=== PATIENT | male | born 1965 | race Caucasian/White ===

== ENCOUNTER 2017-01-10 13:33 | Emergency (ER) | payer OTHER ==
[~2017-01-10] VITALS: Ht 190.5 cm; Wt 120.0 kg
[~2017-01-10 13:33] MED LIST: IBUP-232 PO; PERC5TAB12 PO
[2017-01-10 13:34] VITALS: BP 156/82; PULSE 104; RESP 16; TEMP 98; O2SAT 96
--- NOTE | 2017-01-10 13:46 | PD ---
Physical Exam Date Seen by Provider: January 10, 2017 Time Seen by Provider: 13:45 Narrative 51 year old male presents to the emergency department for evaluation of dizziness, lightheadedness. He denies syncope. He states he has a brain tumor , but never saw a neurologist. Vital signs reviewed. Patient awaiting bed placement. Data Data Last Documented VS Vital Signs Date Time Temp Pulse Resp B/P Pulse Ox O2 Delivery O2 Flow Rate FiO2 01/10/17 13:34 98.0 104 16 156/82 96 MDM Supervised Visit with BARRETT: Veronica Mejia January 10, 2017 13:46
[2017-01-10] MEDS ORDERED: DOXA1TAB35 PO (14:08)
[2017-01-10] MEDS ORDERED: MECL-62 PO (14:08)
[2017-01-10] MEDS ORDERED: ATOR1TAB18 PO (14:08)
[2017-01-10] MEDS ORDERED: LISI10TA3 PO (14:08)
[2017-01-10] MEDS ORDERED: SODIUM CHLOR 0.9% 1000 ML INJ 1,000 ML IV ONE (14:25)
[2017-01-10] MEDS ORDERED: MECLIZINE HCL 25 MG TAB PO ONE (14:30)
[2017-01-10] MEDS ORDERED: SODIUM CHLORIDE 0.9% FLUSH 10 ML FLUSH IVF PRN (14:30)
--- NOTE | 2017-01-10 14:43 | PD ---
HPI Chief Complaint: Syncope/Near-Syncope Time Seen by Provider: 14:20 Travel History International Travel<30 days: No Contact w/Intl Traveler<30days: No Traveled to known affect area: No History of Present Illness HPI Patient comes in for evaluation of vertigo. Patient states he has a history of vertigo however got worse over the past several days. Patient's been taking his Antivert 12.5 mg as directed with some improvement of his symptoms. Patient states 5 days ago he lost sight in his right eye and hearing in his right ear after the casting room helper or pounding on his door causing him to be stress. Patient states he's had this happen to him from time to time since he was a child whenever he gets too stressed. However it has been a while. Patient states this lasted approximately 2 minutes since resolved but his vertigo is got somewhat worse. Patient denies any chest pain, shortness of breath, nausea , vomiting, numbness or tingling anywhere, weakness, headache, trauma, ataxia, paresthesias, or ever seen a neurologist for this. Patient states he contacted his primary care doctor today told to come to the emergency department further treatment and evaluation. PFSH Past Medical History Anxiety: Yes Depression: Yes Cardiovascular Problems: Yes High Cholesterol: Yes Diminished Hearing: Yes ([place]) GERD: Yes Hypertension: Yes Insomnia: Yes Psychiatric: Yes Immunizations Current: No Tetanus Vaccination: > 5 Years Influenza Vaccination: No Past Surgical History Eye Surgery: Yes Social History Alcohol Use: No Tobacco Use: No Substance Use: No Allergies-Medications (Allergen,Severity, Reaction): Coded Allergies: No Known Allergies (Unverified , 01/10/17) Reported Meds & Prescriptions Reported Meds & Active Scripts Active Ibuprofen 600 Mg Tab 600 Mg PO Q8HR PRN Reported Doxazosin (Doxazosin Mesylate) 2 Mg Tab 2 Mg PO DAILY Meclizine (Meclizine HCl) 25 Mg Tab 25 Mg PO Q6HR PRN Lisinopril 10 Mg Tab 10 Mg PO DAILY Atorvastatin (Atorvastatin Calcium) 80 Mg Tab 40 Mg PO HS Review of Systems Except as stated in HPI: all other systems reviewed are Neg Physical Exam Narrative GENERAL: Well-developed, overly nourished, in no acute distress, and non-ill appearing. SKIN: Focused skin assessment warm and dry. HEAD: Atraumatic. Normocephalic. EYES: PERRLA. EOMI. No scleral icterus. No injection or drainage. ENT: No nasal bleeding or discharge. Mucous membranes pink and moist. Tympanic membranes pearly delgado bilaterally. Posterior pharynx is nonerythematous without exudate. Uvula is midline and rises and falls equally. No deviation of the tongue. NECK: Trachea midline. No JVD. Supple. No nuclear rigidity. CARDIOVASCULAR: Regular rate and rhythm. No murmur appreciated. RESPIRATORY: No accessory muscle use. No respiratory distress. Clear to auscultation. Breath sounds equal bilaterally. GASTROINTESTINAL: Abdomen soft, non-tender, nondistended. Hepatic and splenic margins not palpable. Normal bowel sounds 4. No pulsatile mass. MUSCULOSKELETAL: No obvious deformities. No clubbing. No cyanosis. No edema. Full range of motion. Equal rise and fall of the eyebrows. No pronator drift. No slurred speech. Shoulder:FROM equal BL with passive flexion, extension, Abduction, Adduction, internal/external rotation, and pronation/supination. Sensation equal BL deltoid muscles. Pulses equal BL distal to injury. Capillary refill less than 2 seconds distal to injury and equal BL. FROM distal to injury and equal BL. Strength distal to injury equal BL. NV intact distal to injury equal BL. Flexion and extension of thumb equal BL. Equal strength and movement with abduction/adductions of BL fingers. Vacuum Tester Cans strength equal BL. Strength 5 out of 5 and equal bilaterally with plantar and dorsiflexion. Sensation intact over first web spacing bilateral lower extremities. No ataxia. NEUROLOGICAL: Awake and alert. No obvious cranial nerve deficits. Motor grossly within normal limits. Normal speech. PSYCHIATRIC: Appropriate mood and affect; insight and judgment normal. Data Data Last Documented VS Vital Signs Date Time Temp Pulse Resp B/P Pulse Ox O2 Delivery O2 Flow Rate FiO2 01/10/17 17:46 99 18 145/79 97 Room Air 01/10/17 13:34 98.0 Orders Electrocardiogram (01/10/17 14:25) Basic Metabolic Panel (Bmp) (01/10/17 14:25) Complete Blood Count With Diff (01/10/17 14:25) Magnesium (Mg) (01/10/17 14:25) Ckmb (Isoenzyme) Profile (01/10/17 14:25) Troponin I (01/10/17 14:25) Act Partial Throm Time (Ptt) (01/10/17 14:25) Prothrombin Time / Inr (Pt) (01/10/17 14:25) Ct Brain W/O Iv Contrast(Rout) (01/10/17 14:25) Ecg Monitoring (01/10/17 14:25) Iv Access Insert/Monitor (01/10/17 14:25) Oximetry (01/10/17 14:25) Meclizine (Antivert) (01/10/17 14:30) Sodium Chloride 0.9% Flush (Ns Flush) (01/10/17 14:30) Sodium Chlor 0.9% 1000 Ml Inj (Ns 1000 M (01/10/17 14:25) CKMB (01/10/17 14:50) CKMB% (01/10/17 14:50) Labs Laboratory Tests Test 01/10/17 14:50 White Blood Count 9.3 TH/MM3 Red Blood Count 4.92 MIL/MM3 Hemoglobin 14.8 GM/DL Hematocrit 42.7 % Mean Corpuscular Volume 86.8 FL Mean Corpuscular Hemoglobin 30.0 PG Mean Corpuscular Hemoglobin 34.6 % Concent Red Cell Distribution Width 13.2 % Platelet Count 188 TH/MM3 Mean Platelet Volume 10.3 FL Neutrophils (%) (Auto) 63.1 % Lymphocytes (%) (Auto) 26.0 % Monocytes (%) (Auto) 8.3 % Eosinophils (%) (Auto) 2.3 % Basophils (%) (Auto) 0.3 % Neutrophils # (Auto) 5.8 TH/MM3 Lymphocytes # (Auto) 2.4 TH/MM3 Monocytes # (Auto) 0.8 TH/MM3 Eosinophils # (Auto) 0.2 TH/MM3 Basophils # (Auto) 0.0 TH/MM3 CBC Comment DIFF FINAL Differential Comment Prothrombin Time 10.9 SEC Prothromb Time International 1.0 RATIO Ratio Activated Partial 26.5 SEC Thromboplast Time Sodium Level 141 MEQ/L Potassium Level 3.8 MEQ/L Chloride Level 108 MEQ/L Carbon Dioxide Level 25.1 MEQ/L Anion Gap 8 MEQ/L Blood Urea Nitrogen 23 MG/DL Creatinine 1.43 MG/DL Estimat Glomerular Filtration 52 ML/MIN Rate Random Glucose 103 MG/DL Calcium Level 9.3 MG/DL Magnesium Level 2.4 MG/DL Total Creatine Kinase 133 U/L Creatine Kinase MB 0.7 NG/ML Troponin I LESS THAN 0.02 NG/ML MDM Medical Decision Making Medical Screen Exam Complete: Yes Emergency Medical Condition: Yes Interpretation(s) EKG reviewed by Dr. Boyer, shows sinus rhythm with ventricular rate of 64. No STEMI. CT of the head read by the radiologist shows: 1. Negative noncontrast axial head CT for an acute process. 2. Prominent cisterna magna. Differential Diagnosis Worsening vertigo, dehydration, tumor, electrolyte abnormality, other Narrative Course The patient presented with symptoms of vertigo. The patient has a history of vertigo. The cerebellar neurologic exam is completely normal. The clinical suspicion, plan of care and management were discussed with the patient and the patient agreed with plan. Patient in no obvious distress upon re-evaluation. All pertinent laboratory/ Radiology result(s) discussed with patient. Patient reported improvement of symptoms after receiving additional dose of meclizine 25 mg and IV fluid. Discussed patient with Dr. Boyer prior to discharge, who is in agreement with plan of care and disposition. Any questions/concerns in reference to patient diagnosis/condition discussed and clarified prior to patient's discharge. Reinforced sheer importance of close follow up with patient's primary physician or primary care clinic and/or neurologist. Instructed patient to return to ED immediately, if symptoms return/worsen. Pt showed understanding of above instructions. Further instructions and recommendations were detailed in discharge paperwork. Pt ambulated without difficulty out of ED at discharge. Diagnosis Primary Impression: Vertigo Patient Instructions: General Instructions, Vertigo (ED) Additional Instructions: Follow-up with your primary care physician and/or neurologist in 2-5 days for reevaluation. Drink plenty of non-caffeinated and nonalcoholic fluids. Return to the emergency department if symptoms get worse. Disposition: 01 DISCHARGE HOME Condition: Stable Kofi Nevarez January 10, 2017 14:43
[2017-01-10 14:55] VITALS: RESP 18; O2SAT 99
[2017-01-10 15:26] LABS: AUTOMATED NEUTROPHIL # 5.8 TH/MM3 (1.8-7.7); BASOPHIL % 0.3 % (0.0-2.0); EOSINOPHIL # 0.2 TH/MM3 (0-0.4); EOSINOPHIL % 2.3 % (0.0-4.0); HEMATOCRIT 42.7 % (39.0-51.0); HEMO FLAGS DIFF FINAL; LYMPHOCYTE # 2.4 TH/MM3 (1.0-4.8); MEAN CELL VOLUME 86.8 FL (80.0-100.0); MEAN CORPUSCULAR HGB CONC 34.6 % (32.0-36.0); MONO % 8.3 % (0.0-8.0); NEUT % 63.1 % (16.0-70.0); PLATELET COUNT 188 TH/MM3 (150-450); RED BLOOD COUNT 4.92 MIL/MM3 (4.50-5.90); RED CELL DISTRIBUTION WIDTH 13.2 % (11.6-17.2); WHITE BLOOD COUNT 9.3 TH/MM3 (4.0-11.0)
[2017-01-10 15:48] LABS: APTT (PATIENT) 26.5 SEC (24.3-30.1); PROTHROMBIN TIME - PATIENT 10.9 SEC (9.8-11.6)
[2017-01-10 15:50] LABS: CREATINE KINASE 133 U/L (39-308)
[2017-01-10 16:02] LABS: CKMB 0.7 NG/ML (0.5-3.6)
[2017-01-10 16:06] LABS: ANION GAP 8 MEQ/L (5-15); BICARBONATE 25.1 MEQ/L (21.0-32.0); BLOOD UREA NITROGEN 23 MG/DL (7-18); CHLORIDE 108 MEQ/L (98-107); GLOMERULAR FILTRATION RATE 52 ML/MIN (>89); MAGNESIUM 2.4 MG/DL (1.5-2.5); POTASSIUM 3.8 MEQ/L (3.5-5.1); SODIUM (NA) 141 MEQ/L (136-145)
--- NOTE | 2017-01-10 16:35 | RADRPT ---
EXAM DATE/TIME: 01/10/2017 15:58 [facility] COMPARISON: CT BRAIN W/O CONTRAST, June 23, 2015, 5:29. INDICATIONS : Patient complains of dizziness. RADIATION DOSE: 56.35 CTDIvol (mGy) MEDICAL HISTORY : Cardiovascular disease. Hypertension. SURGICAL HISTORY : back surgery ENCOUNTER: Initial ACUITY: 1 day PAIN SCALE: 0/10 LOCATION: Cranial TECHNIQUE: Multiple contiguous axial images were obtained of the head. Using automated exposure control and adj ustment of the mA and/or kV according to patient size, radiation dose was kept as low as reasonably a chievable to obtain optimal diagnostic quality images. FINDINGS: Prominent cisterna magna is evident. There is no parenchymal hemorrhage, acute infarction or mass le iqra. There are no extra-axial fluid collections appreciated. Orbits and paranasal sinuses are unre markable. CONCLUSION: 1. Negative noncontrast axial head CT for an acute process. 2. Prominent cisterna magna. Nigel Menendez MD FACR on January 10, 2017 at 16:10 Board Certified Radiologist. This report was verified electronically.
[2017-01-10 17:46] VITALS: BP 145/79; PULSE 99; RESP 18; O2SAT 97
--- NOTE | 2017-01-11 15:35 | EKG ---
Date Performed: 01/10/2017 Time Performed: 15:02:54 PTAGE: 51 years EKG: Sinus rhythm POSSIBLE LEFT ATRIAL ENLARGEMENT LOW QRS VOLTAGE IN PRECORDIAL LEADS INCOMPLETE RIGHT BUNDLE BRANCH BLOCK BORDERLINE ECG PREVIOUS TRACING : 04/05/2016 11.14 Compared to prior tracing no significant change DOCTOR: Raúl Yun Interpretating Date/Time 01/11/2017 15:35:57
== END 2017-01-10 19:04 | disposition home or self-care (01) ==
LOC: NEPE 13:33
DX: R42 Dizziness and giddiness (principal); R94.31 Abnormal electrocardiogram [ECG] [EKG]; I10 Essential (primary) hypertension; E78.00 Pure hypercholesterolemia, unspecified; Z51.81 Encounter for therapeutic drug level monitoring; Z79.899 Other long term (current) drug therapy
CPT/HCPCS: 70450; 80048; 82550; 82552; 83735; 84484; 85025; 85610; 85730; 93005; 96360; 99284; J7030

== ENCOUNTER 2017-02-01 02:43 | Emergency (ER) | payer OTHER ==
[~2017-02-01] VITALS: Ht 190.5 cm; Wt 120.0 kg
[~2017-02-01 02:43] MED LIST changes: +ATOR1TAB18 PO; +DOXA1TAB35 PO; +LISI10TA3 PO; +MECL-62 PO; -PERC5TAB12 PO
[2017-02-01 02:45] VITALS: BP 132/89; PULSE 86; RESP 20; TEMP 97.8; O2SAT 96
[2017-02-01] MEDS ORDERED: SODIUM CHLOR 0.9% 1000 ML INJ 1,000 ML IV SCH (04:09)
--- NOTE | 2017-02-01 04:14 | PD ---
HPI Chief Complaint: Flank/Kidney Pain Time Seen by Provider: 03:53 Travel History International Travel<30 days: No Contact w/Intl Traveler<30days: No Traveled to known affect area: No History of Present Illness HPI The patient is a 51-year-old male who presents emergency department for right flank pain. The patient developed right flank pain earlier tonight. Pain is located in the right mid back and right flank, nonradiating, associated with one episode of nausea and vomiting. The patient denies any dysuria, frequency, or urgency. The patient does have a history of gallstones and nephrolithiasis, however, states this pain is somewhat different. The pain is dull and achy, nonradiating, and he denies any accompanying fever. He denies any history of previous abdominal surgeries. Symptoms are moderate without any alleviating or exacerbating factors. PFSH Past Medical History Anxiety: Yes Depression: Yes High Cholesterol: Yes Diminished Hearing: Yes ([place]) GERD: Yes Hypertension: Yes Insomnia: Yes Immunizations Current: No Tetanus Vaccination: Unknown Influenza Vaccination: No Past Surgical History Eye Surgery: Yes Social History Alcohol Use: No Tobacco Use: No Substance Use: No Allergies-Medications (Allergen,Severity, Reaction): Coded Allergies: No Known Allergies (Unverified , 02/01/17) Reported Meds & Prescriptions Reported Meds & Active Scripts Active Ibuprofen 600 Mg Tab 600 Mg PO Q8HR PRN Reported Doxazosin (Doxazosin Mesylate) 2 Mg Tab 2 Mg PO DAILY Meclizine (Meclizine HCl) 25 Mg Tab 25 Mg PO Q6HR PRN Lisinopril 10 Mg Tab 10 Mg PO DAILY Atorvastatin (Atorvastatin Calcium) 80 Mg Tab 40 Mg PO HS Review of Systems Except as stated in HPI: all other systems reviewed are Neg General / Constitutional: No: Fever Cardiovascular: No: Chest Pain or Discomfort Respiratory: No: Shortness of Breath Gastrointestinal: Positive: Nausea, Vomiting, Abdominal Pain Genitourinary: Positive: Flank Pain, No: Urgency, Frequency, Dysuria, Hematuria Skin: No Rash Physical Exam Narrative GENERAL: Awake, alert, nontoxic-appearing 51-year-old male who appears his stated age and is in no acute respiratory distress. SKIN: Focused skin assessment warm/dry. HEAD: Atraumatic. Normocephalic. EYES: Pupils equal and round. No scleral icterus. No injection or drainage. ENT: No nasal bleeding or discharge. Mucous membranes pink and moist. NECK: Trachea midline. No JVD. CARDIOVASCULAR: Regular rate and rhythm. No murmur appreciated. RESPIRATORY: No accessory muscle use. Clear to auscultation. Breath sounds equal bilaterally. GASTROINTESTINAL: Abdomen soft, non-tender, nondistended. Negative Spring's. Negative McBurney's. No rebound tenderness, guarding, or rigidity. Back: No CVA tenderness. MUSCULOSKELETAL: No obvious deformities. No clubbing. No cyanosis. No edema. NEUROLOGICAL: Awake and alert. No obvious cranial nerve deficits. Motor grossly within normal limits. Normal speech. PSYCHIATRIC: Appropriate mood and affect; insight and judgment normal. Data Data Last Documented VS Vital Signs Date Time Temp Pulse Resp B/P Pulse Ox O2 Delivery O2 Flow Rate FiO2 02/01/17 05:29 16 02/01/17 02:45 97.8 86 132/89 96 Room Air Orders Complete Blood Count With Diff (02/01/17 04:09) Comprehensive Metabolic Panel (02/01/17 04:09) Lipase (02/01/17 04:09) Lactic Acid (02/01/17 04:09) Urinalysis - C+S If Indicated (02/01/17 04:09) Ct Abd/Pel W/O Iv Contrast (02/01/17 04:09) Iv Access Insert/Monitor (02/01/17 04:09) Ecg Monitoring (02/01/17 04:09) Oximetry (02/01/17 04:09) Morphine Inj (Morphine Inj) (02/01/17 04:15) Ondansetron Inj (Zofran Inj) (02/01/17 04:15) Sodium Chlor 0.9% 1000 Ml Inj (Ns 1000 M (02/01/17 04:09) Sodium Chloride 0.9% Flush (Ns Flush) (02/01/17 04:15) Ketorolac Inj (Toradol Inj) (02/01/17 04:15) Labs Laboratory Tests Test 02/01/17 04:30 White Blood Count 12.4 TH/MM3 Red Blood Count 4.83 MIL/MM3 Hemoglobin 14.1 GM/DL Hematocrit 41.1 % Mean Corpuscular Volume 85.1 FL Mean Corpuscular Hemoglobin 29.3 PG Mean Corpuscular Hemoglobin 34.4 % Concent Red Cell Distribution Width 13.3 % Platelet Count 183 TH/MM3 Mean Platelet Volume 10.0 FL Neutrophils (%) (Auto) 75.6 % Lymphocytes (%) (Auto) 15.6 % Monocytes (%) (Auto) 7.1 % Eosinophils (%) (Auto) 1.6 % Basophils (%) (Auto) 0.1 % Neutrophils # (Auto) 9.4 TH/MM3 Lymphocytes # (Auto) 1.9 TH/MM3 Monocytes # (Auto) 0.9 TH/MM3 Eosinophils # (Auto) 0.2 TH/MM3 Basophils # (Auto) 0.0 TH/MM3 CBC Comment DIFF FINAL Differential Comment Urine Color YELLOW Urine Turbidity HAZY Urine pH 5.5 Urine Specific [place] 1.038 Urine Protein 30 mg/dL Urine Glucose (UA) NEG mg/dL Urine Ketones TRACE mg/dL Urine Occult Blood SMALL Urine Nitrite NEG Urine Bilirubin NEG Urine Urobilinogen 2.0 MG/DL Urine Leukocyte Esterase TRACE Urine RBC 17 /hpf Urine WBC 4 /hpf Urine Squamous Epithelial <1 /hpf Cells Urine Calcium Oxalate Crystals FEW /hpf Urine Hyaline Casts 1 /lpf Urine Mucus MOD /lpf Microscopic Urinalysis Comment CULT NOT INDICATED Sodium Level 141 MEQ/L Potassium Level 4.1 MEQ/L Chloride Level 107 MEQ/L Carbon Dioxide Level 22.3 MEQ/L Anion Gap 12 MEQ/L Blood Urea Nitrogen 20 MG/DL Creatinine 1.65 MG/DL Estimat Glomerular Filtration 44 ML/MIN Rate Random Glucose 121 MG/DL Lactic Acid Level 2.2 mmol/L Calcium Level 9.1 MG/DL Total Bilirubin 0.5 MG/DL Aspartate Amino Transf 29 U/L (AST/SGOT) Alanine Aminotransferase 53 U/L (ALT/SGPT) Alkaline Phosphatase 148 U/L Total Protein 7.3 GM/DL Albumin 4.1 GM/DL Lipase 115 U/L MDM Medical Decision Making Medical Screen Exam Complete: Yes Emergency Medical Condition: Yes Medical Record Reviewed: Yes Interpretation(s) Last Impressions Abdomen/Pelvis CT 02/01/17 0409 Signed Impressions: Service Date/Time: , February 01, 2017 04:57 - CONCLUSION: 5 mm distal right ureteral stone with mild hydronephrosis. Christos Tavares MD Laboratory Tests Test 02/01/17 04:30 White Blood Count 12.4 TH/MM3 Red Blood Count 4.83 MIL/MM3 Hemoglobin 14.1 GM/DL Hematocrit 41.1 % Mean Corpuscular Volume 85.1 FL Mean Corpuscular Hemoglobin 29.3 PG Mean Corpuscular Hemoglobin 34.4 % Concent Red Cell Distribution Width 13.3 % Platelet Count 183 TH/MM3 Mean Platelet Volume 10.0 FL Neutrophils (%) (Auto) 75.6 % Lymphocytes (%) (Auto) 15.6 % Monocytes (%) (Auto) 7.1 % Eosinophils (%) (Auto) 1.6 % Basophils (%) (Auto) 0.1 % Neutrophils # (Auto) 9.4 TH/MM3 Lymphocytes # (Auto) 1.9 TH/MM3 Monocytes # (Auto) 0.9 TH/MM3 Eosinophils # (Auto) 0.2 TH/MM3 Basophils # (Auto) 0.0 TH/MM3 CBC Comment DIFF FINAL Differential Comment Urine Color YELLOW Urine Turbidity HAZY Urine pH 5.5 Urine Specific [place] 1.038 Urine Protein 30 mg/dL Urine Glucose (UA) NEG mg/dL Urine Ketones TRACE mg/dL Urine Occult Blood SMALL Urine Nitrite NEG Urine Bilirubin NEG Urine Urobilinogen 2.0 MG/DL Urine Leukocyte Esterase TRACE Urine RBC 17 /hpf Urine WBC 4 /hpf Urine Squamous Epithelial <1 /hpf Cells Urine Calcium Oxalate Crystals FEW /hpf Urine Hyaline Casts 1 /lpf Urine Mucus MOD /lpf Microscopic Urinalysis Comment CULT NOT INDICATED Sodium Level 141 MEQ/L Potassium Level 4.1 MEQ/L Chloride Level 107 MEQ/L Carbon Dioxide Level 22.3 MEQ/L Anion Gap 12 MEQ/L Blood Urea Nitrogen 20 MG/DL Creatinine 1.65 MG/DL Estimat Glomerular Filtration 44 ML/MIN Rate Random Glucose 121 MG/DL Lactic Acid Level 2.2 mmol/L Calcium Level 9.1 MG/DL Total Bilirubin 0.5 MG/DL Aspartate Amino Transf 29 U/L (AST/SGOT) Alanine Aminotransferase 53 U/L (ALT/SGPT) Alkaline Phosphatase 148 U/L Total Protein 7.3 GM/DL Albumin 4.1 GM/DL Lipase 115 U/L Differential Diagnosis Differential diagnosis includes nephrolithiasis, hydronephrosis, pyelonephritis , appendicitis, atypical cholecystitis, diverticulitis. Narrative Course IV was established, labs are drawn and sent, and the patient was placed on cardiac telemetry monitoring and continuous pulse oximetry monitoring. The patient was administered morphine, Zofran, Toradol, and IV fluids. UA reveals blood. Creatinine is 1.65, I reviewed the EMR, his baseline creatinine is in the 1.[address] of the abdomen and pelvis is positive for kidney stone in the distal right ureteral. Lactic acid is minimally elevated. The patient was reevaluated at 5:50 AM, his pain is significantly improved. Patient be discharged home on [place], ibuprofen, and Flomax. He is advised to strain his urine and follow-up with his primary physician and/or urologist. Return if symptoms worsen or progress. Diagnosis Primary Impression: Nephrolithiasis Patient Instructions: General Instructions Additional Instructions: Medications as directed. Strain your urine. Please provide a patient a copy of his CT results and lab results at discharge. Follow-up with your primary physician and/or urologist as Med/Other Pt SpecificInfo: Prescription(s) given Scripts Hydrocodone-Acetaminophen ([place])5-325 mg Tab1 Tab PO Q6H PRN (PAIN) #20 TAB Ref 0 Prov:Justin Blackmon MD 02/01/17 Tamsulosin (Flomax)0.4 Mg Cap0.4 Mg PO HS #7 CAP Ref 0 Prov:Justin Blackmon MD 02/01/17 Ibuprofen 600 Mg [id number] Mg PO Q6H PRN (Pain/Inflammation) #20 TAB Ref 0 Prov:Justin Blackmon MD 02/01/17 Disposition: 01 DISCHARGE HOME Condition: Stable Justin Blackmon MD Feb 01, 2017 04:14
[2017-02-01] MEDS ORDERED: ONDANSETRON HCL 4 MG/2 ML VIAL IVP ONE (04:15)
[2017-02-01] MEDS ORDERED: SODIUM CHLORIDE 0.9% FLUSH 10 ML FLUSH IV FLUSH PRN (04:15)
[2017-02-01] MEDS ORDERED: MORPHINE SULFATE 4 MG/ML INJ IV PUSH ONE (04:15)
[2017-02-01] MEDS ORDERED: KETOROLAC TROMETHAMINE 30 MG/ML (IVP) VIAL IVP ONE (04:15)
[2017-02-01 04:37] LABS: AUTOMATED NEUTROPHIL # 9.4 TH/MM3 (1.8-7.7); BASOPHIL % 0.1 % (0.0-2.0); EOSINOPHIL # 0.2 TH/MM3 (0-0.4); EOSINOPHIL % 1.6 % (0.0-4.0); HEMATOCRIT 41.1 % (39.0-51.0); HEMO FLAGS DIFF FINAL; LYMPH % 15.6 % (9.0-44.0); LYMPHOCYTE # 1.9 TH/MM3 (1.0-4.8); MEAN CELL VOLUME 85.1 FL (80.0-100.0); MEAN CORPUSCULAR HEMOGLOBIN 29.3 PG (27.0-34.0); MEAN CORPUSCULAR HGB CONC 34.4 % (32.0-36.0); MONO % 7.1 % (0.0-8.0); NEUT % 75.6 % (16.0-70.0); PLATELET COUNT 183 TH/MM3 (150-450); RED BLOOD COUNT 4.83 MIL/MM3 (4.50-5.90); RED CELL DISTRIBUTION WIDTH 13.3 % (11.6-17.2); WHITE BLOOD COUNT 12.4 TH/MM3 (4.0-11.0)
[2017-02-01 04:42] LABS: BLOOD, URINE SMALL (NEG); CALCIUM OXALATE CRYSTALS,URINE FEW /hpf; COMMENT (UR) CULT NOT INDICATED; CULTURE IF INDICATED CULT NOT INDICATED; GLUCOSE,URINE NEG (NEG); HYALINE CAST, URINE 1 /lpf (RARE); KETONE, URINE TRACE mg/dL (NEG); MUCUS URINE MOD /lpf (OCC); NITRITE,URINE NEG (NEG); PH, URINE 5.5 (5.0-8.5); SQUAMOUS EPITHELIAL CELL URINE <1 /hpf (0-5); URINE COLOR YELLOW (YELLW/STRAW)
[2017-02-01 05:05] LABS: ANION GAP 12 MEQ/L (5-15); AST (GOT) 29 U/L (15-37); BICARBONATE 22.3 MEQ/L (21.0-32.0); BLOOD UREA NITROGEN 20 MG/DL (7-18); CHLORIDE 107 MEQ/L (98-107); GLOMERULAR FILTRATION RATE 44 ML/MIN (>89); POTASSIUM 4.1 MEQ/L (3.5-5.1); SODIUM (NA) 141 MEQ/L (136-145)
[2017-02-01 05:06] LABS: ALKALINE PHOSPHATASE 148 U/L (45-117); ALT (GPT) 53 U/L (12-78); TOTAL BILIRUBIN ADULT 0.5 MG/DL (0.2-1.0)
[2017-02-01 05:29] VITALS: RESP 16
--- NOTE | 2017-02-01 05:36 | RADRPT ---
EXAM DATE/TIME: 02/01/2017 04:57 [facility] COMPARISON: CT ABDOMEN & PELVIS W/O CONTRAST, August 12, 2016, 7:43. INDICATIONS : Right flank pain. ORAL CONTRAST: No oral contrast ingested. RADIATION DOSE: 22.27 CTDIvol (mGy) MEDICAL HISTORY : Hypertension. Renal calculi. Gastroesophageal reflux disease. SURGICAL HISTORY : None. ENCOUNTER: Initial ACUITY: 1 day PAIN SCALE: 8/10 LOCATION: Right flank TECHNIQUE: Volumetric scanning of the abdomen and pelvis was performed. Using automated exposure control and ad justment of the mA and/or kV according to patient size, radiation dose was kept as low as reasonably achievable to obtain optimal diagnostic quality images. FINDINGS: LOWER LUNGS: The visualized lower lungs are clear. LIVER: Diffuse hepatic steatosis. 2 small low density lesions in the left lobe of the liver are unchanged. N o evidence of biliary ductal dilatation. SPLEEN: Normal size without lesion. PANCREAS: Within normal limits. KIDNEYS: Mild right hydronephrosis and hydroureter down to the level of a 5 mm stone at the ureterovesical aislinn ction. Left kidney is unremarkable. ADRENAL GLANDS: Within normal limits. VASCULAR: There is no aortic aneurysm. BOWEL/MESENTERY: The stomach, small bowel, and colon demonstrate no acute abnormality. There is no free intraperitone al air or fluid. ABDOMINAL WALL: Within normal limits. RETROPERITONEUM: There is no lymphadenopathy. BLADDER: No wall thickening or mass. REPRODUCTIVE: Within normal limits. INGUINAL: There is no lymphadenopathy or hernia. MUSCULOSKELETAL: Within normal limits for patient age. CONCLUSION: 5 mm distal right ureteral stone with mild hydronephrosis. Christos Tavares MD on February 01, 2017 at 5:30 Board Certified Radiologist. This report was verified electronically.
[2017-02-01] MEDS ORDERED: TAMS5CAP PO (05:54)
[2017-02-01] MEDS ORDERED: IBUP-232 PO (05:54)
[2017-02-01] MEDS ORDERED: NORC5TAB PO (05:54)
== END 2017-02-01 06:10 | disposition home or self-care (01) ==
LOC: NEPE 02:43
DX: N20.0 Calculus of kidney (principal); R11.2 Nausea with vomiting, unspecified; I10 Essential (primary) hypertension; E78.00 Pure hypercholesterolemia, unspecified; H91.90 Unspecified hearing loss, unspecified ear; Z86.59 Personal history of other mental and behavioral disorders; Z87.19 Personal history of other diseases of the digestive system
CPT/HCPCS: 74176; 80053; 81001; 83605; 83690; 85025; 96361; 96374; 96375; 99285; J1885; J2270; J2405; J7030